=== PATIENT | male | born 1970 | race Caucasian/White ===

== ENCOUNTER 2017-05-26 09:24 | Observation (INO) | payer BC ==
[~2017-05-26] VITALS: Ht 170.2 cm; Wt 77.2 kg
--- NOTE | 2017-05-26 09:42 | ERA ---
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 The patient was not aware of any weakness or change in his speech. He denies vertigo, diplopia. He does report having slightly blurry vision in his right eye. According to the patient and paramedics, his symptoms have almost completely resolved at this time. The patient does report subjective and partial facial numbness. The patient is on Coumadin for mechanical aortic valve. He reports that during his hospitalization, his INR was greater than 4. 3 days ago, his INR was 1.9, so he took an extra 10 mg of Coumadin. He denies headache. ROS All systems reviewed and are negative except as per history of present illness. Medications Home Meds Reported Medications Amlodipine Besylate* (Amlodipine Besylate*) 2.5 Mg Tablet, 2.5 MG PO DAILY, #30 TAB 05/26/17 Clopidogrel Bisulfate (Clopidogrel) 75 Mg Tablet, 75 MG PO DAILY, #30 TAB 05/26/17 Atorvastatin* (Atorvastatin*) 40 Mg Tablet, 40 MG PO QHS, #30 TAB 05/26/17 Warfarin Sodium* (Coumadin*) 7.5 Mg Tablet, 7.5-10 MG PO DAILY, TAB 05/26/17 Allergies Allergies: Coded Allergies: No Known Allergy (Unverified , 05/26/17) FmHx Past medical history: Hypertension, multiple TIAs Past surgical history: Aortic valve replacement Social history: Denies tobacco, alcohol or illicit drugs Physical Exam Vitals Vital Signs Date Time Temp Pulse Resp B/P Pulse Ox O2 Delivery O2 Flow Rate FiO2 05/26/17 13:30 98.8 62 18 140/92 100 05/26/17 11:40 98.8 77 18 130/80 99 05/26/17 09:33 98.8 66 20 151/91 99 Physical Exam Const: Alert, no acute distress Head: Atraumatic Eyes: Normal Conjunctiva, no pallor, no icterus ENT: Normal External Ears, Nose and Mouth. Neck: Full range of motion..~ No meningismus. No carotid bruit Resp: Clear to auscultation bilaterally, no wheezes, no rales Cardio: Regular rate and rhythm, click of mechanical valve, 2/6 systolic murmur at the right upper sternal border Abd: Soft, non tender, non distended. Skin: No petechiae or rashes Back: No midline or flank tenderness Ext: No cyanosis, or edema Neur: Awake and alert, cranial nerves II through XII intact bilaterally except for subjective diminished sensation to the right face. No facial droop. No disconjugate gaze. No pronator drift, no dysmetria. Strength 5 out of 5 in all muscle groups in bilateral upper and lower extremities. Negative Babinski. Subjectively diminished sensation in the right lower arm and hand that the patient describes as mild. Psych: Normal Mood and Affect Result Diagram: 05/26/1740 05/26/17 0940 Results 24 hrs Laboratory Tests Test 05/26/17 09:40 White Blood Count 3.810^3/ul Red Blood Count 4.7910^6/ul Hemoglobin 14.7g/dl Hematocrit 43.6% Mean Corpuscular Volume 91.0fl Mean Corpuscular Hemoglobin 30.7pg Mean Corpuscular Hemoglobin Concent 33.7g/dl Red Cell Distribution Width 13.2% Platelet Count 27367^3/UL Mean Platelet Volume 10.7fl Neutrophils % 64.7% Lymphocytes % 24.7% Monocytes % 8.4% Eosinophils % 0.8% Basophils % 1.1% Nucleated Red Blood Cells % 0.0/100WBC Neutrophils # 2.510^3/ul Lymphocytes # 0.910^3/ul Monocytes # 0.310^3/ul Eosinophils # 0.010^3/ul Basophils # 0.010^3/ul Nucleated Red Blood Cells # 0.010^3/ul Prothrombin Time 25.7Sec Prothrombin Time Ratio 2.0 INR International Normalized Ratio 2.32 Activated Partial Thromboplast Time 32.2Sec Sodium Level 139mmol/L Potassium Level 3.5mmol/L Chloride Level 104mmol/L Carbon Dioxide Level 28mmol/L Anion Gap 11 Blood Urea Nitrogen 14mg/dl Creatinine 0.72mg/dl Glucose Level 92mg/dl Calcium Level 9.4mg/dl Troponin I < 0.012ng/ml Current Medications Medications (Trade) Dose Ordered Sig/Luciana Route PRN Reason Start Time Stop Time Status Last Admin Dose Admin Enoxaparin Sodium (Lovenox) 80 mg ONCE SC 05/26/17 13:30 05/26/17 13:59 Procedures/MDM EKG read by me: Time 943, rate 63 Rhythm: Normal sinus [place]: Normal Intervals: Incomplete right bundle branch block ST-T waves: no ischemic changes Ectopy: No Q-waves: No Impression: No evidence of ischemia or arrhythmia MDM: Patient is a 47-year-old male with a mechanical aortic valve with recent history of recurrent TIAs and labile INR. He presents with slurred speech and right arm weakness associated with right face and arm numbness. By the time he has arrived in the ER, he has minimal residual facial numbness only. He is not a TPA candidate due to being on Coumadin and having significant improvement of symptoms. His head CT is unremarkable. His INR is 2.3. Given a usual INR target of 2.5-3.5 for a mechanical valve, I have given him a therapeutic dose of Lovenox. I will admit him for further workup and consideration of alternate anticoagulation strategies. Case was discussed with Dr. Stanton who will admit the patient. 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
[2017-05-26 09:51] LABS: ADD SCAN DIFF NO
[2017-05-26 10:11] LABS: INR 2.32; PROTIME 25.7 Sec (12.2-14.2)
[2017-05-26 10:12] LABS: PARTIAL THROMBOPLASTIN TIME 32.2 Sec (25.0-35.0)
[2017-05-26 10:13] LABS: ANION GAP 11 (8-16); BLOOD UREA NITROGEN 14 mg/dl (7-20); CALCIUM 9.4 mg/dl (8.4-10.2); CARBON DIOXIDE 28 mmol/L (21-31); CHLORIDE 104 mmol/L (97-110); CREATININE 0.72 mg/dl (0.61-1.24); GLUCOSE 92 mg/dl (70-220); POTASSIUM 3.5 mmol/L (3.5-5.1); SODIUM 139 mmol/L (135-144)
--- NOTE | 2017-05-26 10:16 | RADRPT ---
PROCEDURE: CT head without Contrast CLINICAL INDICATION: Possible stroke TECHNIQUE: Transaxial images were made through the head on a multi-slice scanner without intraveno us contrast. Coronal and sagittal images were subsequently reformatted. One or more of the following dose reduction techniques were used: - Automated exposure control. - Adjustment of the mA and/or kV according to patient size. - Use of iterative reconstruction technique. Radiation dose: CTDIvol = 45.01 mGy; DLP = 630.20 mGy-cm. COMPARISON: None FINDINGS: The calvarium appears intact. The mastoid air cells and paranasal sinuses are well-aerated.. The ventricles are normal in size and there is no midline shift. Punctate idiopathic calcification is seen in the right basal ganglia. No intracranial bleed, mass, or extra-axial fluid collection is identified. There is good mann-white matter differentiation. IMPRESSION: Unremarkable noncontrast enhanced CT scan of the head. CT can be insensitive to detect a cute ischemia. One might consider correlation with an MRI based on the patient's symptoms. Findings were telephoned by Matthew Ren MD to Dr. Quiñones on 05/26/2017 at 1008 hours. Physician Michel Date Time Electronically viewed and signed by Physician Michel on 05/26/2017 10:15 /
--- NOTE | 2017-05-26 10:20 | RADRPT ---
PROCEDURE: Chest Radiograph. CLINICAL INDICATION: Chest pain TECHNIQUE: Single frontal chest radiograph. COMPARISON: None available FINDINGS: The patient is status post sternotomy. Heart size is within normal limits. No infiltrate or effus ion is seen. The bones are intact. IMPRESSION: 1. No evidence of acute cardiopulmonary disease. RPTAT: KK .Mason Elliott MD, MD Date Time Electronically viewed and signed by .Mason Elliott MD, on 05/26/2017 10:19 .B/
[2017-05-26 10:22] LABS: HEMATOCRIT 43.6 % (42.0-52.0); HEMOGLOBIN 14.7 g/dl (14.0-18.0); LYMPHOCYTES % 24.7 % (15.0-51.0); MEAN CORPUSCULAR HEMOGLOBIN 30.7 pg (29.0-33.0); MEAN CORPUSCULAR HGB CONC 33.7 g/dl (32.0-37.0); MEAN PLATELET VOLUME 10.7 fl (7.4-10.4); NEUTROPHILS % 64.7 % (39.0-77.0); PLATELET COUNT 127 10^3/UL (140-440); RED BLOOD COUNT 4.79 10^6/ul (4.70-6.10); RED CELL DISTRIBUTION WIDTH 13.2 % (11.5-14.5); WHITE BLOOD COUNT 3.8 10^3/ul (4.8-10.8)
[2017-05-26 10:23] LABS: BASOPHILS % 1.1 % (0.0-2.0); EOSINOPHILS % 0.8 % (0.0-7.0); LYMPHOCYTES # 0.9 10^3/ul (0.8-2.9); MONOCYTE # 0.3 10^3/ul (0.3-0.9); MONOCYTES % 8.4 % (0.0-11.0); NEUTROPHIL # 2.5 10^3/ul (1.6-7.5)
[2017-05-26 10:43] LABS: TROPONIN-I < 0.012 ng/ml (0.00-0.12)
[2017-05-26] MEDS ORDERED: WARF7.5T PO (11:55)
[2017-05-26] MEDS ORDERED: ATOR40TA68 PO (11:55)
[2017-05-26] MEDS ORDERED: CLOP75TA27 PO (11:56)
[2017-05-26] MEDS ORDERED: AMLO2.5T78 PO (11:56)
[2017-05-26] MEDS ORDERED: ENOXAPARIN 100 MG/ML SYG SC SCH (13:30)
[2017-05-26] MEDS ORDERED: ACETAMINOPHEN 325 MG TAB PO PRN ×2 (15:00→16:00)
[2017-05-26] MEDS ORDERED: ONDANSETRON 4 MG INJ IV PRN ×2 (15:00→16:00)
[2017-05-26] MEDS ORDERED: BISACODYL (EC) 5 MG TAB PO PRN (16:00)
[2017-05-26] MEDS ORDERED: NACL 0.9% 3 ML SYG IV SCH (16:00)
[2017-05-26] MEDS ORDERED: HYDROCODONE/APAP (5/325) TAB PO PRN (16:00)
[2017-05-26] MEDS ORDERED: DOCUSATE SODIUM 100 MG CAP PO PRN (16:00)
[2017-05-26] MEDS ORDERED: morphine 2 MG INJ IV PRN (16:00)
--- NOTE | 2017-05-26 16:21 | RADRPT ---
PROCEDURE: US Carotids. CLINICAL INDICATION: bruit , stroke TECHNIQUE: Multiple sonographic of the carotid bifurcation region and vertebral arteries were obta ined utilizing amnn scale, duplex and color-flow imaging. The images were reviewed on a PACS worksta tion. COMPARISON: No prior studies are available for comparison. FINDINGS: Evaluation of the right carotid bifurcation region reveals no significant calcific atherosclerotic d isease. Evaluation of the left carotid bifurcation region reveals no significant calcific atherosclerotic di sease. There is antegrade flow within the vertebral arteries bilaterally. RIGHT CAROTID MEASUREMENTS: Common Carotid Ygwmey96.7 (cm/sec) Internal Carotid Artery - (cm/sec) Internal Carotid Artery - mid49.1 (cm/sec) Internal Carotid Artery - oiojgc00.6 (cm/sec) Internal Carotid/Common Carotid0.53 LEFT CAROTID MEASUREMENTS: Common Carotid Pxnxao49.1 (cm/sec) Internal Carotid Artery - .7 (cm/sec) Internal Carotid Artery - mid52.8 (cm/sec) Internal Carotid Artery - kadadl07.1 (cm/sec) Internal Carotid/Common Carotid0.86 RPTAT: AA IMPRESSION: No evidence for hemodynamically significant stenosis in the bilateral internal carotid arteries - va lidated velocity measurements with angiographic measurements, velocity criteria are extrapolated fro m diameter data as defined by the Society of Radiologists in Ultrasound Consensus Conference Radiolo gy 2003; 229;340-346. This study does indirectly reference the measurement of the distal ICA diamet er as the denominator for stenosis measurement. Normal antegrade flow in the vertebral arteries bilaterally. .Robert Miller MD, Date Time Electronically viewed and signed by .Robert Miller MD, MD on 05/26/2017 16:21 .S/
[2017-05-26 19:33] VITALS: TEMP 98.3
[2017-05-26 20:04] VITALS: PULSE 63
[2017-05-26] MEDS ORDERED: WARFARIN 2 MG TAB PO SCH (21:00)
[2017-05-26] MEDS ORDERED: ATORVASTATIN 40 MG TAB PO SCH (21:00)
[2017-05-26] MEDS: SOD CHLORIDE 0.45% 1,000 ML IV SCH (21:42)
[2017-05-26 22:01] VITALS: BP 134/85; RESP 18
[2017-05-26 22:19] VITALS: Ht 170.2 cm; Wt 77.2 kg
[2017-05-27] VITALS (9 sets, daily range): BP systolic 100–124; BP diastolic 61–79; PULSE 40–74; RESP 17–18
[2017-05-27 07:02] LABS: ADD SCAN DIFF NO
[2017-05-27 07:08] LABS: BASOPHIL # 0.1 10^3/ul (0.0-0.1); BASOPHILS % 1.3 % (0.0-2.0); EOSINOPHILS # 0.1 10^3/ul (0.0-0.5); EOSINOPHILS % 1.5 % (0.0-7.0); HEMATOCRIT 38.5 % (42.0-52.0); LYMPHOCYTES # 1.2 10^3/ul (0.8-2.9); LYMPHOCYTES % 29.6 % (15.0-51.0); MEAN CORPUSCULAR HGB CONC 33.8 g/dl (32.0-37.0); MEAN CORPUSCULAR VOLUME 91.7 fl (82.0-101.0); MEAN PLATELET VOLUME 10.2 fl (7.4-10.4); MONOCYTE # 0.3 10^3/ul (0.3-0.9); MONOCYTES % 8.3 % (0.0-11.0); NEUTROPHIL # 2.4 10^3/ul (1.6-7.5); PLATELET COUNT 134 10^3/UL (140-415); RED CELL DISTRIBUTION WIDTH 13.2 % (11.5-14.5)
[2017-05-27 07:36] LABS: ALBUMIN 4.4 g/dl (3.3-4.9); ALBUMIN/GLOBULIN RATIO 1.69; BILIRUBIN,INDIRECT 0.6 mg/dl (0-1.1); BILIRUBIN,TOTAL 0.6 mg/dl (0.2-1.3); CALCIUM 9.7 mg/dl (8.4-10.2); CHOL/HDL RATIO 1.9 RATIO; CREATININE 0.71 mg/dl (0.61-1.24); PHOSPHORUS 3.4 mg/dl (2.5-4.9); POTASSIUM 4.3 mmol/L (3.5-5.1)
[2017-05-27 08:01] LABS: THYROID STIMULATING HORMONE 2.29 MIU/L (0.465-4.680)
[2017-05-27] MEDS: SOD CHLORIDE 0.45% 1,000 ML IV SCH (08:46)
[2017-05-27] MEDS ORDERED: CLOPIDOGREL 75 MG TAB PO SCH (09:00)
[2017-05-27 09:57] LABS: INR 2.86; PROTIME 30.4 Sec (12.2-14.2); PT RATIO 2.4
--- NOTE | 2017-05-27 12:42 | RADRPT ---
Echocardiogram Report Patient Name: JOSÉ MITCHELL Gender: Male Date: 1970 Study Date: 27-May-2017 Substance Abuse Nurse: Celine Rao [facility] Physician: JOYCE FERNANDEZ Quality: Technically Difficult Study Procedures: Transthoracic echocardiogram with complete 2D, M-Mode, and doppler examination. Indications: re stroke. 2D/M Mode Doppler Measurement Value Normal Ranges Measurement Value Normal Ranges LVIDd 2D 5.0 3.5 - 5.6 cm AV Mean Amos 1.3 m/sec LVIDs 2D 2.8 2.1 - 4.1 cm AV Mean PG 7.5 mmHg LVPWd 2D 1.1 0.6 - 1.1 cm AV Peak Amos 1.8 m/sec IVSd 2D 1.0 0.6 - 1.1 cm AV Peak PG 13.2 mmHg AoR Diam 2D 2.4 2.0 - 3.7 cm AV VTI 36.0 cm EDV 2D 118.0 cm3 LVOT Mean Amos 0.7 m/sec ESV 2D 22.6 cm3 LVOT Mean PG 2.2 mmHg LA Dimen 2D 3.2 2.3 - 4.0 cm LVOT Peak Amos 1.0 m/sec LVOT Peak PG 4.2 mmHg LVOT VTI 23.2 cm MV E Peak Amos 1.2 m/sec MV A Peak Amos 0.7 m/sec MV E/A 1.8 MV Decel Time 259 msec MV Decel [place] 5 MV E/A 1.8 TR Peak Amos 2.4 m/sec TR Peak PG 23.3 mmHg RVSP 26.0 mmHg Findings Left Ventricle: Normal left ventricular systolic function. Normal left ventricular cavity size. Mild concentric left ventricular hypertrophy. Ejection fraction is visually estimated at 55 %. Right Ventricle: Normal right ventricular size. Normal right ventricular systolic function. Left Atrium: The left atrium is normal in size. Right Atrium: The right atrium is normal in size. Mitral Valve: Normal appearance and function of the mitral valve with trace physiologic regurgitation. Aortic Valve: Aortic Valve Mechanical Prosthesis but poorly visualized. Max PG 16.00 mmHg. Mean PG 8.10 mmHg. No significant aortic regurgitation seen. Tricuspid Valve: Normal appearance of the tricuspid valve. Estimated peak PA systolic pressure 26 mmHg. There is mild tricuspid regurgitation. Pulmonic Valve: Pulmonic valve not well visualized. Pericardium: Normal pericardium with no significant pericardial effusion. Aorta: Normal aortic root. IVC: Normal size and normal respiratory collapse consistent with normal right atrial pressure. Conclusions 1.Normal left ventricular systolic function. Normal left ventricular cavity size. Mild concentric left ventricular hypertrophy. Ejection fraction is visually estimated at 55 %. 2.Normal right ventricular size. Normal right ventricular systolic function. 3.The left atrium is normal in size. 4.The right atrium is normal in size. 5.Aortic Valve Mechanical Prosthesis but poorly visualized. Mean PG 8.10 mmHg. No significant aortic regurgitation seen. 6.Estimated peak PA systolic pressure 26 mmHg. There is mild tricuspid regurgitation. 7.Normal appearance and function of the mitral valve with trace physiologic regurgitation. 8.Normal pericardium with no significant pericardial effusion. Electronically Signed By: Jevon Tee 27-May-2017 12:42: Patient Name: JOSÉ MITCHELL Study Date: 27-May-2017 [id number]
--- NOTE | 2017-05-27 13:07 | HP ---
Date/Time of Note Date/Time of Note DATE: 05/27/17 TIME: 12:59 Assessment/Plan VTE Prophylaxis VTE Prophylaxis Intervention: LMWH, other Lines/Catheters IV Catheter Type (from Nrs): Peripheral IV Assessment/Plan Chief Complaint/Hosp Course Assessment 1. TIA? 2. Stress disorder 3. Aortic valve replacement status. Plan Stable, telemetry admit rule out arrhythmia. Neuro checks. Problems: HPI/ROS Admit Date/Time Admit Date/Time May 26, 2017 at 14:36 Hx of Present Illness 47-year-old gentleman came to ER with right facial numbness. Possibly paresthesias right extremities. No mishel dysphagia dysarthria syncope. No palpitations chest pain. No recent fever loss of vision or headache. No known aggravating or relieving factors. Symptoms may have resolved by the time he was in ER. Patient has had similar recurrences about 3 times in the last 1-2 months. He is adherent to medical therapy/Coumadin. He was seen by neurology and cardiology at [facility] recently. There he was told to follow-up with cardiology and consider DUARTE. ER: Vital signs stable ROS Constitutional: no complaints Eyes: no complaints ENT: no complaints Respiratory: no complaints Cardiovascular: no complaints Genitourinary: no complaints Musculoskeletal: no complaints Skin: no complaints Neurologic: other (+ Paresthesias, left facial numbness.z) Endocrine: no complaints Psychological: no complaints PMH/Family/Social Past Medical History TIA? Sign neurology at [facility]. Aortic valve disease sees cardiology Aortic valve replacement status Stress depression? Medical History: other (1- Tia?) Past Surgical History Aortic valve replacement status Family History Significant Family History: no pertinent family hx Social History Alcohol Use: none Smoking Status: Never smoker Exam/Review of Systems Vital Signs Vitals Vital Signs Date Time Temp Pulse Resp B/P Pulse Ox O2 Delivery O2 Flow Rate FiO2 05/27/17 12:14 74 05/27/17 11:00 98.8 18 118/76 98 05/26/17 19:33 Room Air Intake and Output 05/26/17 05/26/17 05/27/17 15:00 23:00 07:00 Intake Total 500 ml Balance 500 ml Exam Exam No pallor adenopathy no droop Regular with mechanical click Clear Benign No edema Cranial nerves II to XII grossly intact Motor 5 x 54 Sensory symmetrical Reflex symmetrical Cerebellar function test: Finger-nose and [id number]-lj-[id number] symmetrical bilaterally. No dysdiadochokinesis Labs Result Diagram: 05/27/17 0645 05/27/17 0645 Medications Medications Current Medications Enoxaparin Sodium (Lovenox) 80 mg ONCE SC Last administered on 05/26/17 13:59; Admin Dose 80 MG; Start 05/26/17 at 13:30 Atorvastatin Calcium (Lipitor) 40 mg QHS PO Last administered on 05/26/17 21:41 ; Admin Dose 40 MG; Start 05/26/17 at 21:00 Clopidogrel Bisulfate 75 mg 75 mg DAILY PO Last administered on 05/27/17 08:46 ; Admin Dose 75 MG; Start 05/27/17 at 09:00 Sodium Chloride (1/2 NS) 1,000 ml @ 50 mls/hr Q20H IV Last administered on 05/27 08:46; Admin Dose 50 MLS/HR; Start 05/26/17 at 17:00 Ondansetron HCl (Zofran Inj) 4 mg Q6H PRN IV NAUSEA AND/OR VOMITING; Start 05/26 at 16:00 Acetaminophen (Tylenol Tab) 650 mg Q6H PRN PO PAIN LEVEL 1-3 OR FEVER; Start at 16:00 Acetaminophen/ Hydrocodone Bitart ([place]uss[place] (5/325)) 1 tab Q6H PRN PO MODERATE PAIN LEVEL 4-6; Start 05/26/17 at 16:00 Morphine Sulfate (morphine) 2 mg Q4H PRN IV SEVERE PAIN LEVEL 7-10; Start at 16:00 Docusate Sodium (Colace) 100 mg Q12H PRN PO CONSTIPATION; Start 05/26/17 at 16: 00 Bisacodyl (Dulcolax) 5 mg DAILY PRN PO CONSTIPATION; Start 05/26/17 at 16:00 Warfarin Sodium (Coumadin) 4 mg DAILY@17 PO Last administered on 05/26/17 21:41 ; Admin Dose 4 MG; Start 05/26/17 at 21:00 JOYCE FERNANDEZ MD May 27, 2017 13:07
--- NOTE | 2017-05-27 13:10 | DS ---
Date/Time of Note Date/Time of Note DATE: 05/27/17 TIME: 13:07 Discharge Summary Admission/Discharge Info Admit Date/Time May 26, 2017 at 14:36 Discharge Date/Time 05/27/17 Discharge Diagnosis TIA Adjustment disorder/stress Aortic valve replacement status Procedures Echo normal carotid normal CAT scan of the brain no acute process. Hx of Present Illness 47-year-old gentleman came to ER with right facial numbness. Possibly paresthesias right extremities. No mishel dysphagia dysarthria syncope. No palpitations chest pain. No recent fever loss of vision or headache. No known aggravating or relieving factors. Symptoms may have resolved by the time he was in ER. Patient has had similar recurrences about 3 times in the last 1-2 months. He is adherent to medical therapy/Coumadin. He was seen by neurology and cardiology at [facility] recently. There he was told to follow-up with cardiology and consider DUARTE. ER: Vital signs stable Hospital Course Admitted and ruled out for stroke. No recurrence of symptoms. Spoke with patient's regular library consultant who recommended tertiary care referral to evaluate his valve as a potential cause of repeated TIAs. Patient is aware of the risk of repeat TIA/stroke management and this time will not change. Needs to continue Coumadin. Needs a tertiary care referral. Today on day of discharge, patient states of also having marital stress. No ideation at this time. Needs referral to psychology and social service. Assessment and plan 1. TIA? Stable continue Coumadin 2. Stress disorder. Outpatient behavioral health or social service. 3. Aortic valve replacement status. Discharge planning Appointment primary 1 week Cardiology Tuesday Needs referral for behavioral health or social service to stress Diet regular Activity no driving if dizzy Allergies none CODE STATUS full Condition stable Barriers discharge none Pending tests none Functional status patient awake alert agrees plan of care DME none Stopped medications: None Continue medications: Coumadin as before Altered medications: None New medications: None Home Meds Reported Medications Amlodipine Besylate* (Amlodipine Besylate*) 2.5 Mg Tablet, 2.5 MG PO DAILY, #30 TAB 05/26/17 Clopidogrel Bisulfate (Clopidogrel) 75 Mg Tablet, 75 MG PO DAILY, #30 TAB 05/26/17 Atorvastatin* (Atorvastatin*) 40 Mg Tablet, 40 MG PO QHS, #30 TAB 05/26/17 Warfarin Sodium* (Coumadin*) 7.5 Mg Tablet, 7.5-10 MG PO DAILY, TAB 05/26/17 Primary Care Provider Not On Staff Doctor Pending Labs Laboratory Tests Test 05/27/17 06:45 05/27/17 09:03 White Blood Count 4.010^3/ul (4.8-10.8) Red Blood Count 4.2010^6/ul (4.70-6.10) Hemoglobin 13.0g/dl (14.0-18.0) Hematocrit 38.5% (42.0-52.0) Mean Corpuscular Volume 91.7fl (82.0-101.0) Mean Corpuscular Hemoglobin 31.0pg (29.0-33.0) Mean Corpuscular Hemoglobin Concent 33.8g/dl (32.0-37.0) Red Cell Distribution Width 13.2% (11.5-14.5) Platelet Count 54755^3/UL (140-415) Mean Platelet Volume 10.2fl (7.4-10.4) Neutrophils % 59.0% (39.0-77.0) Lymphocytes % 29.6% (15.0-51.0) Monocytes % 8.3% (0.0-11.0) Eosinophils % 1.5% (0.0-7.0) Basophils % 1.3% (0.0-2.0) Nucleated Red Blood Cells % 0.0/100WBC (0.0-0.0) Neutrophils # 2.410^3/ul (1.6-7.5) Lymphocytes # 1.210^3/ul (0.8-2.9) Monocytes # 0.310^3/ul (0.3-0.9) Eosinophils # 0.110^3/ul (0.0-0.5) Basophils # 0.110^3/ul (0.0-0.1) Nucleated Red Blood Cells # 0.010^3/ul (0.0-0.0) Sodium Level 145mmol/L (135-144) Potassium Level 4.3mmol/L (3.5-5.1) Chloride Level 104mmol/L (97-110) Carbon Dioxide Level 29mmol/L (21-31) Anion Gap 16 (8-16) Blood Urea Nitrogen 15mg/dl (7-20) Creatinine 0.71mg/dl (0.61-1.24) Glucose Level 91mg/dl (70-220) Hemoglobin A1c 5.5% (0-5.9) Calcium Level 9.7mg/dl (8.4-10.2) Phosphorus Level 3.4mg/dl (2.5-4.9) Magnesium Level 2.0mg/dl (1.7-2.5) Total Bilirubin 0.6mg/dl (0.2-1.3) Direct Bilirubin 0.00mg/dl (0.00-0.20) Indirect Bilirubin 0.6mg/dl (0-1.1) Aspartate Amino Transf (AST/SGOT) 23IU/L (15-46) Alanine Aminotransferase (ALT/SGPT) 31IU/L (13-69) Alkaline Phosphatase 55IU/L (42-121) Total Protein 7.0g/dl (6.1-8.1) Albumin 4.4g/dl (3.3-4.9) Globulin 2.60g/dl (1.3-3.2) Albumin/Globulin Ratio 1.69 Triglycerides Level 56mg/dl (0-149) Cholesterol Level 108mg/dl (100-200) LDL Cholesterol, Calculated 42mg/dl HDL Cholesterol 55mg/dl (28-71) Cholesterol/HDL Ratio 1.9RATIO Thyroid Stimulating Hormone (TSH) 2.290MIU/L (0.465-4.680) Prothrombin Time 30.4Sec (12.2-14.2) Prothrombin Time Ratio 2.4 INR International Normalized Ratio 2.86 Microbiology Date/Time Source Procedure Growth Status 05/26/17 22:00 Nares MRSA Screen - Preliminary Screening in process Resulted JOYCE FERNANDEZ MD May 27, 2017 13:10
--- NOTE | 2017-05-27 13:12 | PDOCDIS ---
Discharge Instructions DIAGNOSIS Discharge Diagnosis TIA CONDITION Patient Condition: Stable HOME CARE INSTRUCTIONS: Special Diet: low fat, low cholesterol ACTIVITY: Activity Restrictions Comment: Do not drive if dizzy. FOLLOW UP/APPOINTMENTS Follow-up Plan Appointment primary 1 week Appointment cardiology Tuesday Repeat INR for Coumadin level next week. Call insurance for referral for ongoing social service support for stress. JOYCE FERNANDEZ MD May 27, 2017 13:12
[2017-05-27] MEDS ORDERED: WARFARIN 10 MG TAB PO SCH (14:00)
[2017-05-27] MEDS ORDERED: WARFARIN 5 MG TAB PO SCH (14:30)
== END 2017-05-27 14:45 | disposition home or self-care (01) ==
LOC: E/R 09:24 → TEL 14:36
PROVIDERS: ADMIT Internal Medicine; ATTEND Internal Medicine
DX: G45.9 Transient cerebral ischemic attack, unspecified (principal); F43.9 Reaction to severe stress, unspecified; Z95.2 Presence of prosthetic heart valve
CPT/HCPCS: 36415; 70450; 71010; 80048; 80053; 80061; 82306; 83036; 83735; 84100; 84443; 84484; 85025; 85610; 85730; 86850; 86900; 86901; 87081; 92610; 93005; 93306; 93880; 96372; 97161; 99285; J1650; Z7500; Z7610; G0378